=== PATIENT | female | born 1965 | race American Indian/Alaskan Native ===

== ENCOUNTER 2017-01-01 14:51 | Outpatient (CLI) | payer BC ==
--- NOTE | 2017-01-01 15:38 | Mammography Report ---
BILATERAL MAMMOGRAM: FINDINGS: The breast tissue is heterogeneously dense, which could obscure detection of small masses (approximately 50%-75% glandular). No mass, distortion, suspicious calcification, or skin change is seen. There are no significant changes when compared to her prior examination in 2014. CAD was utilized. IMPRESSION: Negative mammogram. There is no mammographic evidence of malignancy. RECOMMENDATION: Follow-up per ACS guidelines. BI-RADS CATEGORY: 1 = Negative ACR BI-RADS MAMMOGRAPHIC CODES: 0 = Needs additional imaging evaluation; 1 = Negative; 2 = Benign; 3 = Probably benign; 4 = Suspicious; 5 = Malignant; 6 = Known biopsy-proven malignancy COMMENT: 1. Dense breast tissue, i.e., adenosis, fibrocystic changes, etc., may obscure an underlying neoplasm. 2. Approximately 10% of cancers are not detected with mammography. 3. A negative mammography report should not delay biopsy if a clinically suspicious mass is present. COMMENT: Patient follow-up letters are generated in [employer].
== END 2017-01-01 14:52 | disposition home or self-care (01) ==
LOC: MAMMO 14:51
PROVIDERS: ATTEND Obstetrics & Gynecology
DX: Z12.31 Encounter for screening mammogram for malignant neoplasm of breast (principal); I10 Essential (primary) hypertension; F17.200 Nicotine dependence, unspecified, uncomplicated
CPT/HCPCS: 77067; G0202

== ENCOUNTER 2017-10-05 07:29 | Emergency (ER) | payer BC ==
[2017-10-05 07:41] VITALS: BP 149/79
--- NOTE | 2017-10-05 08:26 | Emergency Department Report ---
HPI - General Chief Complaint: Upper Respiratory Infection Time Seen by Provider: 10/05/17 07:56 - HPI HPI: Patient reports cough and congestion that started on Wednesday. She says she saw her primary care physician who diagnosed her with COPD secondary to smoking. Patient says she was placed on CPAP for about a month for sleep apnea. She says she feels tired. Denies any nausea or vomiting. Denies any fever or chills. Reports cough . Denies any chest pain but reports shortness of breath when she walks. Patient is on Symbicort and so she needs a refill. She says she does not take albuterol. She uses her CPAP 3 times a week which she used last night. Pain is 0 out of 10 ED Past Medical Hx - Past Medical History Previous Medical History?: Yes Hx Hypertension: Yes Hx COPD: Yes Additional medical history: endometriosis, high cholesterol - Surgical History Past Surgical History?: Yes - Family History Family history: hypertension - Social History Smoking Status: Current Every Day Smoker Substance Use Type: None - Medications Home Medications: Home Medications Medication Instructions Recorded Confirmed Last Taken Type Amoxicillin [Trimox CAP] 500 mg PO Q8H #20 capsule 12/06/13 Unknown Rx HYDROcodone/APAP 10-325 [[place] 1 each PO Q6HR PRN #30 tablet 12/06/13 Unknown Rx 10/325] Ibuprofen [Motrin 800 MG tab] 800 mg PO Q8H PRN #30 tablet 12/06/13 Unknown Rx Amoxicillin/K Clav Tab [Augmentin 1 tab PO Q12HR 10 Days #20 tab 10/05/17 Unknown Rx 875 mg] Budesonide/Formoterol Fumarate 2 1000units IH BID #1 hfa.aer.ad 10/05/17 Unknown Rx [Symbicort 160-4.5 Mcg Inhaler] Cetirizine HCl [ZyrTEC] 10 mg PO QDAY 14 Days #14 capsule 10/05/17 Unknown Rx Chlorpheniramine/Dextromethorp 1 each PO Q12H PRN #14 tablet 10/05/17 Unknown Rx [Coricidin Hbp Cough & Cold Tab] Fluticasone [Flonase] 1 spray NS QDAY 14 Days #1 bottle 10/05/17 Unknown Rx predniSONE [Deltasone] 50 mg PO QDAY 5 Days #5 tab 10/05/17 Unknown Rx ED Review of Systems ROS: Stated complaint: SOB Other details as noted in HPI Comment: All other systems reviewed and negative Constitutional: malaise ENT: congestion. denies: ear pain, throat pain Respiratory: cough, shortness of breath, SOB with exertion. denies: orthopnea, SOB at rest, stridor, wheezing Cardiovascular: denies: chest pain, palpitations, edema, syncope Gastrointestinal: denies: abdominal pain, nausea, vomiting, diarrhea, constipation, hematemesis, melena Genitourinary: denies: dysuria, discharge Musculoskeletal: denies: back pain, joint swelling, arthralgia, myalgia Skin: denies: rash Neurological: denies: headache, numbness, paresthesias, abnormal gait, vertigo Physical Exam - Physical Exam Vital Signs: Vital Signs 10/05/17 07:37 Temperature 98.2 F Pulse Rate 86 Respiratory 20 Rate Blood Pressure 149/79 O2 Sat by Pulse 100 Oximetry General: This is a 52-year-old female well-nourished well-developed in no acute distress. Physical Exam: Head: Normocephalic atraumatic Ears:BIateral TM congested without erythema and loss of bony landmarks. [place]unier EAC with normal exam. No mastoid bone tenderness. Mouth: Moist, no pharyngeal erythema or exudate . No tonsillar erythema or exudate. UVULA midline and oral airways patent. No peritonsillar abscess Neck: Nontender to palpate, supple, normal range of motion. No adenopathy. No c- spine tenderness. Nose: Bilateral nasal mucosa congested with clear drainage. Maxillary and frontal sinuses non-tender to palpate. Eyes: Biateral Sclerae and conjunctiva without injection. Bilateral pupils equal and reactive to light. Bilateral lids are normal. Normal accommodation.BEOMI Lungs: Patient with congested cough and rhonchi that is cleared with coughing. No wheezing. Lungs sound slightly diminished throughout.. Normal work of breathing and no chest wall tenderness CV: S1, S2. Regular rate and rhythm negative murmur. Capillary refill is less than 3 seconds Skin: Clean dry and intact, no rashes or lesions Psych: Normal mood and behavior ED Course Vital Signs 10/05/17 07:37 Temperature 98.2 F Pulse Rate 86 Respiratory 20 Rate Blood Pressure 149/79 O2 Sat by Pulse 100 Oximetry - Reevaluation(s) Reevaluation #1: 10/05/17 09:45 Patient given Deltasone 60 mg by mouth, DuoNeb 1 nebulizer. Patient says she is feeling a lot better after treatment and steroid. ED Medical Decision Making - Radiology Data Radiology results: report reviewed Chest x-ray revealed no acute cardiopulmonary processes - Medical Decision Making ED course: Patient here for cough and congestion and some shortness of breath. She was diagnosed recently with COPD and started on Symbicort. Patient still smokes and says she is down to 3 cigarettes per day. She's been smoking and for over 30+ year. Patient uses a CPAP machine and she used it last night and says she feels tired all the time. Chest x-ray reveals no acute cardiopulmonary processes. Patient given DuoNeb 1 treatment and physical 60 mg by mouth and reported that she felt better after treatment. She is requesting a refill on her Symbicort. I discussed with her that if she is having in feeling of tiredness everyday then she needs to schedule an appointment with her primary care physician for probably readjustment of her CPAP machine. I also discussed with her that her x-ray was stable. Patient discharged home with prescription for Symbicort, Cherelle, Flonase, Coricidin HBP , prednisone and Augmentin. I discussed diagnosis and treatment plan the patient and she voiced understanding. I also discussed with her that she needs to talk to her primary care regarding referral to ventilator specialist and I will also refer her to a pulmonary doctor. Discharge home in stable condition. Critical care attestation.: If time is entered above; I have spent that time in minutes in the direct care of this critically ill patient, excluding procedure time. ED Disposition Clinical Impression: URI with cough and congestion, COPD, mild, Nicotine abuse Disposition: DC-01 TO HOME OR SELFCARE Is pt being admited?: No Does the pt Need Aspirin: No Condition: Stable Instructions: Chronic Obstructive Pulmonary Disease (ED), Acute Cough (ED), Upper Respiratory Infection (ED), How to Stop Smoking (ED) Additional Instructions: Follow up with your primary care physician in 2-3 days Take referral to ventilator specialist Take medication as prescribed Increase her fluid intake Prescriptions: Amoxicillin/K Clav Tab [Augmentin 875 mg] 1 tab PO Q12HR 10 Days #20 tab Budesonide/Formoterol Fumarate [Symbicort 160-4.5 Mcg Inhaler] 2 1000units IH BID #1 hfa.aer.ad Cetirizine HCl [ZyrTEC] 10 mg PO QDAY 14 Days #14 capsule Chlorpheniramine/Dextromethorp [Coricidin Hbp Cough & Cold Tab] 1 each PO Q12H PRN #14 tablet PRN Reason: Cough Fluticasone [Flonase] 1 spray NS QDAY 14 Days #1 bottle predniSONE [Deltasone] 50 mg PO QDAY 5 Days #5 tab Referrals: PRIMARY CARE, [Primary Care Provider] - 2-3 Days ZAIN LEZAMA MD [Staff Physician] - Forms: Work/School Release Form(ED)
[2017-10-05] MEDS ORDERED: DUONEB *Not for PRN Use IH ONE (08:27)
[2017-10-05] MEDS ORDERED: DELTASONE PO ONE (08:27)
--- NOTE | 2017-10-05 08:58 | XRay Report ---
ROUTINE CHEST, TWO VIEWS: HISTORY: Cough, shortness of breath. The trachea, heart, mediastinal contour, lung sykes and bony thorax are unremarkable. IMPRESSION: Unremarkable chest x-ray.
== END 2017-10-05 10:13 | disposition home or self-care (01) ==
LOC: ED 07:29
DX: J44.9 Chronic obstructive pulmonary disease, unspecified (principal); F17.200 Nicotine dependence, unspecified, uncomplicated; I10 Essential (primary) hypertension; E78.00 Pure hypercholesterolemia, unspecified
CPT/HCPCS: 71046; 94640; 99283; J7512

== ENCOUNTER 2021-01-17 13:12 | Outpatient (CLI) | payer OTHER ==
--- NOTE | 2021-01-20 09:04 | Mammography Report ---
DIGITAL SCREENING MAMMOGRAM WITH CAD, 01/17/2021 CLINICAL INFORMATION / INDICATION: Routine screening mammography. SCREENING MAMMO TECHNIQUE: Digital bilateral 2D mammography was obtained in the craniocaudal and mediolateral obliqu e projections. This examination was interpreted with the benefit of Computer-Aided Detection analysis . COMPARISON: 01/01/2017, 12/18/2019 FINDINGS: Breast Density: The breasts are heterogeneously dense, which may obscure small masses. No dominant mass, suspicious calcifications, or architectural distortion in the right breast. There i s a small benign-appearing nodule near the nipple on the left. There is possible developing architectural distortion in the medial left breast seen on the left cc v iew. Patient complains of a bump near the left nipple. No discrete cysts mammographic abnormality is seen to correlate. IMPRESSION: There is questionable developing architectural distortion on the left which requires furt her evaluation. Patient has complaint of palpable abnormality on the left. Follow up recommendation: Ultrasound is recommended to evaluate the palpable abnormality. Spot compre ssion views recommended to further evaluate the possible developing architectural distortion distorti on. BI-RADS Category 0: Incomplete. Needs additional imaging evaluation and/or prior mammograms for senia rison. A "normal" or negative report should not discourage follow up or biopsy of a clinically significant f inding. A written summary of these findings will be mailed to the patient. The patient will be entered into a mammography reporting system which will generate a reminder letter for the patient's next appointmen t at the appropriate interval. The [employer] recommends yearly mammograms starting at age 40 and continuing as l annie as a woman is in good health. Breast MRI is recommended for women with an approximate 20-25% or greater lifetime risk of breast cancer, including women with a strong family history of breast or ova alfredo cancer or who have been treated for Hodgkin's disease. Signer Name: Emery Joseph MD Signed: 01/20/2021 9:00 AM Workstation Name: [id number]
== END 2021-01-17 13:13 | disposition home or self-care (01) ==
LOC: MAMMO 13:12
PROVIDERS: ATTEND Obstetrics & Gynecology
DX: Z12.31 Encounter for screening mammogram for malignant neoplasm of breast (principal)
CPT/HCPCS: 77067

== ENCOUNTER 2021-03-12 08:43 | Outpatient (CLI) | payer OTHER ==
--- NOTE | 2021-03-12 10:14 | Ultrasound Report ---
LEFT DIGITAL DIAGNOSTIC MAMMOGRAM WITH CAD CONVENTIONAL, 03/12/2021 LEFT LIMITED BREAST ULTRASOUND CLINICAL INFORMATION / INDICATION: Patient presents as a callback from screening mammogram for furthe r evaluation of a possible area of architectural distortion in the left breast. Patient previously re ported in an area of palpable concern in the left breast, but she states that this has subsequently r esolved. TECHNIQUE: Digital left mammographic imaging was performed. Spot compression views were obtained. Knapp ited ultrasound was performed. This examination was interpreted with the benefit of Computer-Aided De tection (CAD) analysis. COMPARISON: Prior mammogram 01/17/2021 FINDINGS: Breast Density: The breasts are heterogeneously dense, which may obscure small masses. MAMMOGRAPHIC FINDINGS: The previously questioned area of architectural distortion in the medial left breast does not persist on spot compression views and is most compatible with overlapping dense fibro glandular tissue. Targeted ultrasound was performed for confirmation. There is a stable nodular densi ty with associated benign appearing calcifications in the left breast. ULTRASOUND FINDINGS: Targeted ultrasound evaluation was performed of the area of interest. Targeted ultrasound of the medial left breast reveals normal fibroglandular tissue. No suspicious cystic or s olid lesion identified. IMPRESSION: 1. The previously questioned area of distortion does not persist on additional views and is without s onographic correlate, compatible with overlapping fibroglandular tissue. No suspicious mammographic o r sonographic abnormality identified. Follow up recommendation: Routine yearly BI-RADS Category 2: Benign. A "normal" or negative report should not discourage follow up or biopsy of a clinically significant f inding. A written summary of these findings will be mailed to the patient. The patient will be entered into a mammography reporting system which will generate a reminder letter for the patient's next appointmen t at the appropriate interval. According to the [employer], yearly mammograms are recommended starting at age 40 and continuing as long as a woman is in good health. Breast MRI is recommended for women with an seng roximately 20-25% or greater lifetime risk of breast cancer, including women with a strong family his tory of breast or ovarian cancer and women who have been treated for Hodgkin's disease. Signer Name: Sadaf Gutierres MD Signed: 03/12/2021 10:10 AM Workstation Name: [id number]
== END 2021-03-12 08:44 | disposition home or self-care (01) ==
LOC: SPVWC 08:43
PROVIDERS: ATTEND Obstetrics & Gynecology
DX: N63.0 Unspecified lump in unspecified breast (principal); R92.8 Other abnormal and inconclusive findings on diagnostic imaging of breast